=== PATIENT | male | born 1985 | race Caucasian/White ===

== ENCOUNTER 2019-03-19 06:54 | Day surgery (SDC) | payer OTHER ==
[2019-03-18 10:16] VITALS: BMI 28.2
--- NOTE | 2019-03-18 12:59 | HP ---
CHIEF COMPLAINT: Major Depressive Disorder, severe, psychotic features PCP: Pilar Garza Primary Psychiatrist: [facility] HISTORY OF PRESENT ILLNESS: 33 year-old male with a PMH significant for major depressive disorder, severe, with psychotic features. Patient received ECT at [facility] from 11/01-11/23/18. He presents today for ECT. Recent Events: * none reported PAST MEDICAL HISTORY: Major Depressive Disorder PAST SURGICAL HISTORY: None reported Social History: lives with parents and brothers, does not work Smoking: never Alcohol: rare Drugs: no Family History: mother, father, 2 brothers all a&w Allergies No Known Allergies Allergy (Verified 03/18/19 09:59) HOME MEDICATIONS: Home Medications Medication Instructions Recorded Fluoxetine HCl [Prozac] 40 mg PO DAILY 03/18/19 Mirtazapine 15 mg PO HS 03/18/19 Multivitamin [Multiple Vitamins] 1 each PO DAILY 03/18/19 REVIEW OF SYSTEMS CONSTITUTIONAL: Absent: fever, chills, diaphoresis, generalized weakness, malaise, loss of appetite, weight change HEENT: Absent: rhinorrhea, nasal congestion, throat pain, throat swelling, difficulty swallowing, mouth swelling, ear pain, eye pain, visual changes CARDIOVASCULAR: Absent: chest pain, syncope, palpitations, irregular heart rate, lightheadedness , peripheral edema RESPIRATORY: Absent: cough, shortness of breath, dyspnea with exertion, orthopnea, wheezing, stridor, hemoptysis GASTROINTESTINAL: Absent: abdominal pain, abdominal distension, nausea, vomiting, diarrhea, constipation, melena, hematochezia GENITOURINARY: Absent: dysuria, frequency, urgency, hesitancy, hematuria, flank pain, genital pain MUSCULOSKELETAL: Absent: myalgia, arthralgia, joint swelling, back pain, neck pain SKIN: Absent: rash, itching, pallor HEMATOLOGIC/IMMUNOLOGIC: Absent: easy bleeding, easy bruising, lymphadenopathy, frequent infections ENDOCRINE: Absent: unexplained weight gain, unexplained weight loss, heat intolerance, cold intolerance NEUROLOGIC: Absent: headache, focal weakness or paresthesias, dizziness, unsteady gait, seizure, mental status changes, bladder or bowel incontinence PHYSICAL EXAMINATION T97.8 BP 117/75 p56 97% room air GENERAL: Awake, alert, and fully oriented, in no acute distress. HEAD: Normal with no signs of trauma. EYES: Pupils equal, round and reactive to light, sclera anicteric, conjunctiva clear. LUNGS: Breath sounds equal, clear to auscultation bilaterally. No wheezes, and no crackles. No accessory muscle use. HEART: Regular rate and rhythm, normal S1 and S2 ABDOMEN: Soft, nontender, not distended MUSCULOSKELETAL: Normal range of motion at all joints. No bony deformities or tenderness. No CVA tenderness. UPPER EXTREMITIES: 2+ pulses, warm, well-perfused. No cyanosis. No clubbing. No peripheral edema. LOWER EXTREMITIES: 2+ pulses, warm, well-perfused. No calf tenderness. No peripheral edema. NEUROLOGICAL: Cranial nerves II-XII intact. Normal speech. ASSESSMENT/PLAN: 33 year-old male with a PMH significant for major depressive disorder, severe, with psychotic features. He presents today for ECT. Cardiac --no cardiac history --Revised Cardiac Risk Index for Pre-Operative Risk: 0 points, 0.4% risk of major cardiac event Pulmonary --no pulmonary history Neurological --no neurological or neurosurgical history; no history of trauma Anesthesia --no reported problems with anesthesia; has tolerated ECT in the past ECT is a low risk procedure. The relative benefits of the planned procedure outweigh the relative risks for this patient at this time. Visit type - Emergency Visit Emergency Visit: No - New Patient This patient is new to me today: Yes Date on this admission: 03/19/19 - Critical Care Critical Care patient: No
[2019-03-19 07:51] LABS: BASO % 1.3 % (0-2.0); EOS % 13.2 % (0-4.5); HEMATOCRIT 42.7 % (35.4-49); LYMPH % 33.9 % (8-40); MCHC 32.8 g/dl (32.0-35.9); MEAN CELL VOLUME 85.3 fl (80-96); MEAN PLT VOLUME 7.3 fl (7.5-11.1); MONO % 11.6 % (3.8-10.2); PLATELET COUNT 334 K/MM3 (134-434); RBC 5.01 M/mm3 (4.00-5.60); RDW 14.6 % (11.9-15.9); WHITE BLOOD COUNT 5.9 K/mm3 (4.0-10.8)
[2019-03-19 07:54] LABS: CALCIUM 8.9 mg/dl (8.5-10); CREATININE 1.3 mg/dl (0.55-1.3)
[2019-03-19] MEDS ORDERED: KETAMINE HCL 500 MG/10 ML VIAL ONE (08:24)
[2019-03-19] MEDS ORDERED: ONDANSETRON 4 MG/2 ML VIAL IVPUSH PRN (08:59)
[2019-03-19] MEDS ORDERED: LACTATED RINGERS SOLUTION 1,000 ML IV SCH (09:00)
[2019-03-19 09:42] VITALS: TEMP 98.7
[2019-03-19 10:03] VITALS: BP 112/67; PULSE 61
--- NOTE | 2019-03-19 12:54 | EKG ---
Test Reason : Blood Pressure : / mmHG Vent. Rate : 060 BPM Atrial Rate : 060 BPM P-R Int : 164 ms QRS Dur : 096 ms QT Int : 404 ms P-R-T Axes : 026 -14 014 degrees QTc Int : 404 ms NORMAL SINUS RHYTHM No ischemic st changes Confirmed by MD Neeraj, Kings ([id number]) on 03/19/2019 12:54:01 PM Referred By: Loco Hyman Confirmed By:Kings Pickard MD
== END 2019-03-19 10:05 | disposition home or self-care (01) ==
LOC: FECT 06:54
PROVIDERS: ATTEND Psychiatry & Neurology Psychiatry
PROC: GZB4ZZZ Other Electroconvulsive Therapy (ICD-10-PCS; principal; 2019-03-19 08:00)
DX: F32.9 Major depressive disorder, single episode, unspecified (principal)
CPT/HCPCS: 36415; 80048; 85025; 90870; 93005; 94760

== ENCOUNTER 2019-03-20 05:39 | Day surgery (SDC) | payer OTHER ==
[2019-03-18 14:19] VITALS: BMI 28.2
[2019-03-20] MEDS ORDERED: KETAMINE HCL 500 MG/10 ML VIAL ONE (06:48)
[2019-03-20 08:15] VITALS: TEMP 97.8
[2019-03-20 08:33] VITALS: BP 118/76; PULSE 61
== END 2019-03-20 08:37 | disposition home or self-care (01) ==
LOC: FECT 05:39
PROVIDERS: ATTEND Psychiatry & Neurology Psychiatry
PROC: GZB4ZZZ Other Electroconvulsive Therapy (ICD-10-PCS; principal; 2019-03-20 07:00)
DX: F32.9 Major depressive disorder, single episode, unspecified (principal)
CPT/HCPCS: 90870; 94760

== ENCOUNTER 2019-03-22 05:44 | Day surgery (SDC) | payer OTHER ==
[2019-03-18 16:37] VITALS: BMI 28.2
[2019-03-22 06:34] VITALS: TEMP 98.2
[2019-03-22] MEDS ORDERED: KETAMINE HCL 500 MG/10 ML VIAL ONE (06:53)
[2019-03-22 08:01] VITALS: PULSE 62
[2019-03-22 08:23] VITALS: BP 110/74
== END 2019-03-22 08:24 | disposition home or self-care (01) ==
LOC: FECT 05:44
PROVIDERS: ATTEND Psychiatry & Neurology Psychiatry
PROC: GZB4ZZZ Other Electroconvulsive Therapy (ICD-10-PCS; principal; 2019-03-22 07:15)
DX: F32.9 Major depressive disorder, single episode, unspecified (principal)
CPT/HCPCS: 90870; 94760

== ENCOUNTER 2019-03-25 05:42 | Day surgery (SDC) | payer OTHER ==
[2019-03-19 15:40] VITALS: BMI 28.2
[2019-03-25] MEDS ORDERED: KETAMINE HCL 500 MG/10 ML VIAL ONE (06:54)
[2019-03-25 07:52] VITALS: TEMP 97.9
[2019-03-25 08:13] VITALS: BP 114/74; PULSE 62
== END 2019-03-25 08:17 | disposition home or self-care (01) ==
LOC: FECT 05:42
PROVIDERS: ATTEND Psychiatry & Neurology Psychiatry
PROC: GZB4ZZZ Other Electroconvulsive Therapy (ICD-10-PCS; principal; 2019-03-25 07:00)
DX: F33.2 Major depressive disorder, recurrent severe without psychotic features (principal)
CPT/HCPCS: 90870; 94760

== ENCOUNTER 2019-03-27 05:42 | Day surgery (SDC) | payer OTHER ==
[2019-03-19 15:43] VITALS: BMI 28.2
[2019-03-27 06:30] VITALS: TEMP 97.6
[2019-03-27] MEDS ORDERED: KETAMINE HCL 500 MG/10 ML VIAL ONE (06:56)
[2019-03-27 08:17] VITALS: BP 106/62; PULSE 64
== END 2019-03-27 08:20 | disposition home or self-care (01) ==
LOC: FECT 05:42
PROVIDERS: ATTEND Psychiatry & Neurology Psychiatry
PROC: GZB4ZZZ Other Electroconvulsive Therapy (ICD-10-PCS; principal; 2019-03-27 07:00)
DX: F33.2 Major depressive disorder, recurrent severe without psychotic features (principal)
CPT/HCPCS: 90870; 94760

== ENCOUNTER 2019-03-29 05:40 | Day surgery (SDC) | payer OTHER ==
[2019-03-29 06:22] VITALS: BMI 28.2
[2019-03-29] MEDS ORDERED: KETAMINE HCL 500 MG/10 ML VIAL ONE (07:00)
[2019-03-29 07:58] VITALS: PULSE 54; TEMP 98.1
[2019-03-29 08:23] VITALS: BP 114/72
== END 2019-03-29 08:25 | disposition home or self-care (01) ==
LOC: FECT 05:40
PROVIDERS: ATTEND Psychiatry & Neurology Psychiatry
PROC: GZB4ZZZ Other Electroconvulsive Therapy (ICD-10-PCS; principal; 2019-03-29 07:00)
DX: F32.9 Major depressive disorder, single episode, unspecified (principal)
CPT/HCPCS: 90870; 94760

== ENCOUNTER 2019-04-01 05:50 | Day surgery (SDC) | payer OTHER ==
[2019-03-27 07:47] VITALS: BMI 28.2
[2019-04-01] MEDS ORDERED: KETAMINE HCL 500 MG/10 ML VIAL ONE (07:12)
[2019-04-01 07:54] VITALS: TEMP 98.1
[2019-04-01 08:27] VITALS: BP 118/74; PULSE 64
== END 2019-04-01 08:30 | disposition home or self-care (01) ==
LOC: FECT 05:50
PROVIDERS: ATTEND Psychiatry & Neurology Psychiatry
PROC: GZB4ZZZ Other Electroconvulsive Therapy (ICD-10-PCS; principal; 2019-04-01 07:15)
DX: F33.2 Major depressive disorder, recurrent severe without psychotic features (principal)
CPT/HCPCS: 90870; 94760

== ENCOUNTER → 2019-04-03 | Day surgery (SDC) | payer OTHER ==
[2019-03-27 13:14] VITALS: BMI 28.2
[~2019-04-03] MED LIST: KETAMINE HCL 500 MG/10 ML VIAL ONE; LACTATED RINGERS SOLUTION 1,000 ML IV SCH
[2019-04-03 06:24] VITALS: TEMP 97.8
[2019-04-03 08:10] VITALS: BP 122/75; PULSE 66
== END | disposition home or self-care (01) ==
LOC: FECT 05:44
PROVIDERS: ATTEND Psychiatry & Neurology Psychiatry
PROC: GZB4ZZZ Other Electroconvulsive Therapy (ICD-10-PCS; principal; 2019-04-03 07:00)
DX: F32.9 Major depressive disorder, single episode, unspecified (principal)
CPT/HCPCS: 90870; 94760

== ENCOUNTER → 2019-04-05 | Day surgery (SDC) | payer OTHER ==
[2019-03-27 16:11] VITALS: BMI 28.2
[~2019-04-05] MED LIST changes: -LACTATED RINGERS SOLUTION 1,000 ML IV SCH
[2019-04-05 07:53] VITALS: BP 116/74; PULSE 60; TEMP 98.2
== END | disposition home or self-care (01) ==
LOC: FECT 05:40
PROVIDERS: ATTEND Psychiatry & Neurology Psychiatry
PROC: GZB4ZZZ Other Electroconvulsive Therapy (ICD-10-PCS; principal; 2019-04-05 07:00)
DX: F32.9 Major depressive disorder, single episode, unspecified (principal)
CPT/HCPCS: 90870; 94760

== ENCOUNTER 2019-04-10 05:40 | Day surgery (SDC) | payer OTHER ==
[2019-03-29 16:14] VITALS: BMI 28.2
[2019-04-10] MEDS ORDERED: KETAMINE HCL 500 MG/10 ML VIAL ONE (07:31)
[2019-04-10] MEDS ORDERED: LACTATED RINGERS SOLUTION 1,000 ML IV SCH (07:45)
[2019-04-10 08:31] VITALS: TEMP 97.8
[2019-04-10 08:49] VITALS: BP 124/72; PULSE 64
== END 2019-04-10 08:40 | disposition home or self-care (01) ==
LOC: FECT 05:40
PROVIDERS: ATTEND Psychiatry & Neurology Psychiatry
PROC: GZB4ZZZ Other Electroconvulsive Therapy (ICD-10-PCS; principal; 2019-04-10 07:00)
DX: F32.9 Major depressive disorder, single episode, unspecified (principal)
CPT/HCPCS: 90870; 94760

== ENCOUNTER 2019-04-12 05:46 | Day surgery (SDC) | payer OTHER ==
[2019-03-29 16:17] VITALS: BMI 28.2
[2019-04-12] MEDS ORDERED: KETAMINE HCL 500 MG/10 ML VIAL ONE (07:06)
[2019-04-12 07:58] VITALS: PULSE 52
[2019-04-12 08:25] VITALS: BP 116/76; TEMP 98.2
[2019-04-12] MEDS ORDERED: LACTATED RINGERS SOLUTION 1,000 ML IV SCH (08:45)
== END 2019-04-12 08:26 | disposition home or self-care (01) ==
LOC: FECT 05:46
PROVIDERS: ATTEND Psychiatry & Neurology Psychiatry
PROC: GZB4ZZZ Other Electroconvulsive Therapy (ICD-10-PCS; principal; 2019-04-12 07:00)
DX: F32.9 Major depressive disorder, single episode, unspecified (principal)
CPT/HCPCS: 90870; 94760

== ENCOUNTER 2019-04-15 05:42 | Day surgery (SDC) | payer OTHER ==
[2019-04-01 10:37] VITALS: BMI 28.2
[2019-04-15] MEDS ORDERED: KETAMINE HCL 500 MG/10 ML VIAL ONE (06:56)
[2019-04-15] MEDS ORDERED: LACTATED RINGERS SOLUTION 1,000 ML IV SCH (07:00)
[2019-04-15 07:50] VITALS: TEMP 97.7
[2019-04-15 08:16] VITALS: BP 126/72; PULSE 52
== END 2019-04-15 08:19 | disposition home or self-care (01) ==
LOC: FECT 05:42
PROVIDERS: ATTEND Psychiatry & Neurology Psychiatry
PROC: GZB4ZZZ Other Electroconvulsive Therapy (ICD-10-PCS; principal; 2019-04-15 07:00)
DX: F33.2 Major depressive disorder, recurrent severe without psychotic features (principal)
CPT/HCPCS: 90870; 94760

== ENCOUNTER 2019-04-17 05:49 | Day surgery (SDC) | payer OTHER ==
[2019-04-17 06:27] VITALS: BMI 27.2
[2019-04-17] MEDS ORDERED: KETAMINE HCL 500 MG/10 ML VIAL ONE (06:52)
[2019-04-17] MEDS ORDERED: ONDANSETRON 4 MG/2 ML VIAL IVPUSH PRN (06:55)
[2019-04-17] MEDS ORDERED: ACETAMINOPHEN 325 MG TABLET (FP) PO PRN (06:55)
[2019-04-17] MEDS ORDERED: oxyCODONE HCL 5 MG TABLET PO PRN (06:55)
[2019-04-17 08:11] VITALS: BP 118/72; PULSE 72; TEMP 97.2
== END 2019-04-17 08:14 | disposition home or self-care (01) ==
LOC: FECT 05:49
PROVIDERS: ATTEND Psychiatry & Neurology Psychiatry
PROC: GZB4ZZZ Other Electroconvulsive Therapy (ICD-10-PCS; principal; 2019-04-17 07:30)
DX: F32.9 Major depressive disorder, single episode, unspecified (principal)
CPT/HCPCS: 90870; 94760

== ENCOUNTER 2019-04-19 05:47 | Day surgery (SDC) | payer OTHER ==
[2019-04-12 12:38] VITALS: BMI 28.2
[2019-04-19] MEDS ORDERED: KETAMINE HCL 500 MG/10 ML VIAL ONE (07:48)
[2019-04-19] MEDS ORDERED: PROMETHAZINE HCL 25 MG/1 ML VIAL IVPUSH PRN (08:01)
[2019-04-19] MEDS ORDERED: ACETAMINOPHEN 500 MG TABLET (FP) PO PRN (08:01)
[2019-04-19] MEDS ORDERED: LACTATED RINGERS SOLUTION 1,000 ML IV SCH (08:15)
[2019-04-19 08:37] VITALS: TEMP 98.1
[2019-04-19 09:16] VITALS: BP 112/76; PULSE 63
--- NOTE | 2019-04-19 12:48 | HP ---
CHIEF COMPLAINT: Major Depressive Disorder, severe, psychotic features PCP: Pilar Garza Primary Psychiatrist: [facility] HISTORY OF PRESENT ILLNESS: 33 year-old male with a PMH significant for major depressive disorder, severe, with psychotic features. Patient received ECT at [place] from 11/01-11/23/18. He presents today for ECT. Recent Events: * none reported PAST MEDICAL HISTORY: Major Depressive Disorder PAST SURGICAL HISTORY: None reported Social History: lives with parents and brothers, does not work Smoking: never Alcohol: rare Drugs: no Family History: mother, father, 2 brothers all a&w Allergies No Known Allergies Allergy (Verified 04/19/19 07:06) HOME MEDICATIONS: Home Medications Medication Instructions Recorded Fluoxetine HCl [Prozac] 40 mg PO DAILY 03/18/19 Mirtazapine 15 mg PO HS 03/18/19 REVIEW OF SYSTEMS CONSTITUTIONAL: Absent: fever, chills, diaphoresis, generalized weakness, malaise, loss of appetite, weight change HEENT: Absent: rhinorrhea, nasal congestion, throat pain, throat swelling, difficulty swallowing, mouth swelling, ear pain, eye pain, visual changes CARDIOVASCULAR: Absent: chest pain, syncope, palpitations, irregular heart rate, lightheadedness , peripheral edema RESPIRATORY: Absent: cough, shortness of breath, dyspnea with exertion, orthopnea, wheezing, stridor, hemoptysis GASTROINTESTINAL: Absent: abdominal pain, abdominal distension, nausea, vomiting, diarrhea, constipation, melena, hematochezia GENITOURINARY: Absent: dysuria, frequency, urgency, hesitancy, hematuria, flank pain, genital pain MUSCULOSKELETAL: Absent: myalgia, arthralgia, joint swelling, back pain, neck pain SKIN: Absent: rash, itching, pallor HEMATOLOGIC/IMMUNOLOGIC: Absent: easy bleeding, easy bruising, lymphadenopathy, frequent infections ENDOCRINE: Absent: unexplained weight gain, unexplained weight loss, heat intolerance, cold intolerance NEUROLOGIC: Absent: headache, focal weakness or paresthesias, dizziness, unsteady gait, seizure, mental status changes, bladder or bowel incontinence PHYSICAL EXAMINATION Vital Signs - 24 hr 04/19/19 04/19/19 04/19/19 07:07 08:16 08:20 Temperature 98.3 F 98.1 F Pulse Rate 58 L 79 61 Respiratory 16 17 15 Rate Blood Pressure 116/77 138/88 124/81 O2 Sat by Pulse 97 97 98 Oximetry (%) 04/19/19 04/19/19 04/19/19 08:25 08:30 08:35 Temperature Pulse Rate 76 68 66 Respiratory 18 15 16 Rate Blood Pressure 129/77 124/76 118/75 O2 Sat by Pulse 94 L 95 95 Oximetry (%) 04/19/19 04/19/19 04/19/19 08:40 08:45 09:15 Temperature 98.1 F 98.1 F 98.1 F Pulse Rate 66 64 63 Respiratory 16 18 18 Rate Blood Pressure 118/75 110/71 112/76 O2 Sat by Pulse 95 96 98 Oximetry (%) 04/19/19 09:20 Temperature 98.1 F Pulse Rate 63 Respiratory 18 Rate Blood Pressure 112/76 O2 Sat by Pulse Oximetry (%) GENERAL: Awake, alert, and fully oriented, in no acute distress. HEAD: Normal with no signs of trauma. EYES: Pupils equal, round and reactive to light, extraocular movements intact, sclera anicteric, conjunctiva clear. No lid lag. EARS, NOSE, THROAT: Ears normal, nares patent, oropharynx clear without exudates. Moist mucous membranes. NECK: Normal range of motion, supple without lymphadenopathy, JVD, or masses. LUNGS: Breath sounds equal, clear to auscultation bilaterally. No wheezes, and no crackles. No accessory muscle use. HEART: Regular rate and rhythm, normal S1 and S2 without murmur, rub or gallop. ABDOMEN: Soft, nontender, not distended, normoactive bowel sounds, no guarding, no rebound, no masses. No hepatomegaly or splenomegaly. MUSCULOSKELETAL: Normal range of motion at all joints. No bony deformities or tenderness. No CVA tenderness. UPPER EXTREMITIES: 2+ pulses, warm, well-perfused. No cyanosis. No clubbing. No peripheral edema. LOWER EXTREMITIES: 2+ pulses, warm, well-perfused. No calf tenderness. No peripheral edema. NEUROLOGICAL: Cranial nerves II-XII intact. Normal speech. Normal gait. PSYCHIATRIC: Cooperative. Good eye contact. Appropriate mood and affect. SKIN: Warm, dry, normal turgor, no rashes or lesions noted, normal capillary refill. ASSESSMENT/PLAN: 33 year-old male with a PMH significant for major depressive disorder, severe, with psychotic features. He presents today for ECT. Cardiac --no cardiac history --Revised Cardiac Risk Index for Pre-Operative Risk: 0 points, 0.4% risk of major cardiac event Pulmonary --no pulmonary history Neurological --no neurological or neurosurgical history; no history of trauma Anesthesia --no reported problems with anesthesia; has tolerated ECT in the past ECT is a low risk procedure. The relative benefits of the planned procedure outweigh the relative risks for this patient at this time. Visit type - Emergency Visit Emergency Visit: No - New Patient This patient is new to me today: Yes Date on this admission: 04/19/19 - Critical Care Critical Care patient: No
== END 2019-04-19 09:20 | disposition home or self-care (01) ==
LOC: FECT 05:47
PROVIDERS: ATTEND Psychiatry & Neurology Psychiatry
PROC: GZB4ZZZ Other Electroconvulsive Therapy (ICD-10-PCS; principal; 2019-04-19 07:45)
DX: F32.9 Major depressive disorder, single episode, unspecified (principal)
CPT/HCPCS: 90870; 94760

== ENCOUNTER 2019-04-25 05:38 | Day surgery (SDC) | payer OTHER ==
[2019-04-25 06:20] VITALS: BMI 27.3
[2019-04-25] MEDS ORDERED: KETAMINE HCL 500 MG/10 ML VIAL ONE (06:53)
[2019-04-25 07:25] VITALS: TEMP 97.7
[2019-04-25] MEDS ORDERED: PROMETHAZINE HCL 25 MG/1 ML VIAL IVPUSH PRN (08:09)
[2019-04-25] MEDS ORDERED: ACETAMINOPHEN 500 MG TABLET (FP) PO PRN (08:09)
[2019-04-25] MEDS ORDERED: LACTATED RINGERS SOLUTION 1,000 ML IV SCH (08:15)
[2019-04-25 08:20] VITALS: BP 119/79; PULSE 67
== END 2019-04-25 08:20 | disposition home or self-care (01) ==
LOC: FECT 05:38
PROVIDERS: ATTEND Psychiatry & Neurology Psychiatry
PROC: GZB4ZZZ Other Electroconvulsive Therapy (ICD-10-PCS; principal; 2019-04-25 07:45)
DX: F33.2 Major depressive disorder, recurrent severe without psychotic features (principal)
CPT/HCPCS: 90870; 94760

== ENCOUNTER 2019-05-02 07:25 | Day surgery (SDC) | payer OTHER ==
[2019-05-02 08:00] VITALS: BMI 27.3
[2019-05-02] MEDS ORDERED: KETAMINE HCL 500 MG/10 ML VIAL ONE (09:05)
[2019-05-02 10:37] VITALS: TEMP 98
[2019-05-02 10:50] VITALS: BP 113/63; PULSE 76
== END 2019-05-02 10:55 | disposition home or self-care (01) ==
LOC: FECT 07:25
PROVIDERS: ATTEND Psychiatry & Neurology Psychiatry
PROC: GZB4ZZZ Other Electroconvulsive Therapy (ICD-10-PCS; principal; 2019-05-02 09:15)
DX: F32.9 Major depressive disorder, single episode, unspecified (principal)
CPT/HCPCS: 90870; 94760

== ENCOUNTER 2019-05-09 05:45 | Day surgery (SDC) | payer OTHER ==
[2019-05-09 06:22] VITALS: TEMP 98.2; BMI 27.3
[2019-05-09] MEDS ORDERED: KETAMINE HCL 500 MG/10 ML VIAL ONE (06:58)
[2019-05-09 08:22] VITALS: BP 115/77; PULSE 78
== END 2019-05-09 08:25 | disposition home or self-care (01) ==
LOC: FECT 05:45
PROVIDERS: ATTEND Psychiatry & Neurology Psychiatry
PROC: GZB4ZZZ Other Electroconvulsive Therapy (ICD-10-PCS; principal; 2019-05-09 08:00)
DX: F32.9 Major depressive disorder, single episode, unspecified (principal)
CPT/HCPCS: 90870; 94760